=== PATIENT | female | born 1960 | race Caucasian/White ===

== ENCOUNTER 2017-08-19 11:11 | Inpatient (IN) | payer OTHER ==
[2017-08-19 12:26] VITALS: BMI 25.0
--- NOTE | 2017-08-19 14:50 | HP ---
<Tavares Sawyer - Last Filed: 08/20/17 06:57> Admission [facility] Allergies/Adverse Reactions: Allergies Allergy/AdvReac Type Severity Reaction Status Date / Time No Known Allergies Allergy Verified 08/19/17 12:54 Admission Physical Exam [facility] Vital Signs Vital Signs: Vital Signs - 24 hr 08/19/17 08/20/17 08/20/17 12:22 00:30 03:30 Temperature 96 F L Pulse Rate 82 Respiratory 16 18 18 Rate Blood Pressure 118/71 08/20/17 06:46 Temperature 98.3 F Pulse Rate 90 Respiratory 18 Rate Blood Pressure 107/70 - Diagnostic (1) Cocaine dependence Current Visit: Yes Status: Acute (2) Nicotine dependence Current Visit: Yes Status: Chronic Qualifiers: Nicotine product type: cigarettes Substance use status: uncomplicated Qualified Code(s): F17.210 - Nicotine dependence, cigarettes, uncomplicated <Jaime Corral - Last Filed: 08/20/17 12:09> Admission [facility] Chief Complaint: "I need help. Things have gotten out of control." Pt. is here for Rehab for Cocaine use. History of Present Illness: Pt. is a 56 YO female here for Rehab for Cocaine use. This is pt.'s first Rehab admission at [facility]. Pt. had 1 previous Detox admission at [facility] @ 2006. Longest period of non-drug use: 2012 -2016. Exam Limitations: No Limitations - Ebola screening Have you traveled outside of the country in the last 21 days: No Have you had contact with anyone from an Ebola affected area: No Have you been sick,other than usual withdrawal symptoms: No Do you have a fever: No - Review of Systems Constitutional: Chills, Diaphoresis, Fever, Malaise, Night Sweats, Changes in sleep, Unintentional Wgt. Loss (Lost Approx. 10 bs. over last 3 weeks.) EENT: reports: No Symptoms Reported Respiratory: reports: SOB with Exertion Cardiac: reports: No Symptoms Reported GI: reports: Diarrhea : reports: No Symptoms Reported Musculoskeletal: reports: No Symptoms Reported Integumentary: reports: No Symptoms Reported Neuro: reports: Numbness (Occasional in toes of bilateral feet.), Tingling ( Occasional in toes of bilateral feet.) Endocrine: reports: No Symptoms Reported Hematology: reports: No Symptoms Reported Psychiatric: reports: Judgement Intact, Mood/Affect Appropiate, Orientated x3, Anxious, Depressed (Meds.) Other Systems: Reviewed and Negative Patient History - Patient Medical History Hx Anemia: No Hx Asthma: No Hx Chronic Obstructive Pulmonary Disease (COPD): No Hx Cancer: Yes (Breast Ca. (Treated, In remission X 3 years).) Hx Cardiac Disorders: No Hx Congestive Heart Failure: No Hx Hypertension: No Hx Hypercholesterolemia: No Hx Pacemaker: No HX Cerebrovascular Accident: No Hx Seizures: No Hx Dementia: No Hx Diabetes: No Hx Gastrointestinal Disorders: No Hx Liver Disease: No Hx Genitourinary Disorders: No Hx Sexually Transmitted Disorders: No Hx Renal Disease (ESRD): No Hx Thyroid Disease: No Hx Human Immunodeficiency Virus (HIV): No (NEGATIVE HX; Last tested many years ago.) Hx Hepatitis C: No (NEGATIVE HX; Last tested many years ago.) Hx Depression: Yes (Meds.) Hx Suicide Attempt: Yes (cut right wrist with a switch box installer in 2005; PATIENT DENIES CURRENT SI / HI.) Hx Bipolar Disorder: Yes (Meds.) Hx Schizophrenia: No Other Medical History: DENIES. - Patient Surgical History Past Surgical History: Yes Hx Neurologic Surgery: No Hx Cataract Extraction: No Hx Cardiac Surgery: No Hx Lung Surgery: No Hx Breast Surgery: Yes (removal of cyst (malignant) in 2013) Hx Breast Biopsy: Yes (in 2013) Hx Abdominal Surgery: No Hx Appendectomy: No Hx Cholecystectomy: No Hx Genitourinary Surgery: No Hx Section: No Hx Orthopedic Surgery: No Hx Hysterectomy: No Anesthesia Reaction: No - PPD History Previous Implant?: Yes Documented Results: Negative w/o proof Implanted On Prior R Admission?: No PPD to be Administered?: Yes - Reproductive History Patient is a Female of Child Bearing Age (11 -55 yrs old): No LMP comment: LMP 16 Years Ago. Patient : No - Smoking Cessation Smoking history: Current every day smoker Have you smoked in the past 12 months: Yes Aproximately how many cigarettes per day: 6 Cigars Per Day: 0 Hx Chewing Tobacco Use: No Initiated information on smoking cessation: Yes 'Breaking Loose' booklet given: 08/19/17 (GIVEN ON UNIT.) - Substance & Tx. History Hx Alcohol Use: No Hx Substance Use: Yes Substance Use Type: Cocaine Hx Substance Use Treatment: Yes (1 Previous Detox admission at [facility] (@ 2005).) - Substances Abused Cocaine Route: Inhalation Frequency: Daily Amount used: $100 Age of first use: 21 Date of Last Use: 08/16/17 Family Disease History - Family Disease History Family Disease History: Respiratory: Mother (COPD, .), Other: Son ( , MVA.) Admission Physical Exam [facility] - Vital Signs Vital Signs: Vital Signs - 24 hr 08/19/17 12:22 Temperature 96 F L Pulse Rate 82 Respiratory 16 Rate Blood Pressure 118/71 - Physical General Appearance: Yes: No Apparent Distress, Nourished, Appropriately Dressed , Anxious HEENTM: Yes: Hearing grossly Normal, Normocephalic, Normal Voice, MYKEL, Pharynx Normal Respiratory: Yes: Chest Non-Tender, Lungs Clear, No Respiratory Distress, No Accessory Muscle Use Neck: Yes: No masses,lesions,Nodules, Supple, Trachea in good position Breast: Yes: Breast Exam Deferred Cardiology: Yes: Regular Rhythm, Regular Rate, S1, S2 Abdominal: Yes: Normal Bowel Sounds, Non Tender, Flat, Soft Genitourinary: Yes: Within Normal Limits Back: Yes: Normal Inspection Musculoskeletal: Yes: full range of Motion, Gait Steady Extremities: Yes: Normal Range of Motion, Non-Tender Neurological: Yes: Fully Oriented, Alert, Normal Mood/Affect, Normal Response Integumentary: Yes: Normal Color, Dry, Warm Lymphatic: Yes: Within Normal Limits - Diagnostic (1) Cocaine dependence, uncomplicated Current Visit: Yes Status: Chronic (2) Nicotine dependence Current Visit: Yes Status: Chronic Qualifiers: Nicotine product type: cigarettes Substance use status: uncomplicated Qualified Code(s): F17.210 - Nicotine dependence, cigarettes, uncomplicated (3) History of breast cancer Current Visit: Yes Status: Chronic (4) History of breast surgery Current Visit: Yes Status: Chronic (5) History of depression Current Visit: Yes Status: Chronic (6) History of bipolar disorder Current Visit: Yes Status: Chronic Cleared for Admission [facility] - Detox or Rehab Claeared for Rehab Admission: Yes [facility] Breath Alcohol Content Breath Alcohol Content: 0 Urine Pregancy Test - Result Urine Test Results: Negative- NO Line Present Urine Drug Screen - Results Drug Screen Negative: No Urine Drug Screen Results: NARDA-Cocaine Inpatient Rehab Admission - Initial Determination Are CD services needed?: Yes Free of communicable disease: Yes Not in need of hospitalization: Yes - Rehab Admission Criteria Comorbidities: Yes Patient is meeting Inpatient Rehab admission criteria:: Yes
[2017-08-19] MEDS ORDERED: guaiFENesin/D-METHORPHAN HB 10 ML UNIT-DOSE CUPS PO PRN (15:14)
[2017-08-19] MEDS ORDERED: IBUPROFEN 400 MG TABLET (FP) PO PRN (15:14)
[2017-08-19] MEDS ORDERED: P-EPHED 60MG/TRIPROLIDI 2.5MG TABLET PO PRN (15:14)
[2017-08-19] MEDS ORDERED: MAGNESIUM CITRATE 300 ML BOTTLE PO PRN (15:14)
[2017-08-19] MEDS ORDERED: NICOTINE POLACRILEX 2 MG GUM BUC PRN (15:14)
[2017-08-19] MEDS ORDERED: MAG HYDROX/AL HYDROX/SIMETH 30 ML UNIT-DOSE CUP PO PRN (15:14)
[2017-08-19] MEDS ORDERED: LOPERAMIDE HCL 2 MG CAPSULE PO PRN (15:14)
[2017-08-19 17:03] LABS: MCH 29.2 pg (25.7-33.7); MCHC 33.5 g/dl (32.0-36.0); MEAN CELL VOLUME 87.3 fl (80-96); PLATELET COUNT 255 K/MM3 (134-434); RDW 14.7 % (11.6-15.6); WHITE BLOOD COUNT 10.6 K/mm3 (4.0-10.0)
[2017-08-19 17:12] LABS: ALBUMIN 3.7 g/dl (3.4-5.0); ANION GAP 9 (8-16); CALCIUM 9.2 mg/dL (8.5-10.1); CO2 27 mmol/L (21-32); GLUCOSE,RANDOM 76 mg/dL (74-106); SGPT/ALT 14 U/L (12-78)
[2017-08-19 17:14] LABS: ALK PHOS 124 U/L (45-117); BILIRUBIN,TOTAL 0.4 mg/dL (0.2-1.0); CREATININE 0.8 mg/dL (0.55-1.02); SGOT/AST 6 U/L (15-37); TOT PROT 6.8 g/dl (6.4-8.2)
[2017-08-19] MEDS ORDERED: TUBERCULIN PPD 5 TU/0.1ML VIAL ID ONE (20:00)
[2017-08-19] MEDS: NICOTINE 14 MG/24 HOURS TOPICAL PATCH TD SCH (20:00)
[2017-08-19 21:22] LABS: URINE APPEARANCE SLCLOUDY; URINE BILIRUBIN NEGATIVE (NEGATIVE); URINE BLOOD 1+ (NEGATIVE); URINE COLOR YELLOW; URINE GLUCOSE (UA) NEGATIVE (NEGATIVE); URINE KETONE NEGATIVE (NEGATIVE); URINE LEUK ESTERASE NEGATIVE (NEGATIVE); URINE NITRITE NEGATIVE (NEGATIVE); URINE PROTEIN NEGATIVE (NEGATIVE); URINE UROBILINOGEN NEGATIVE mg/dL (0.2-1.0)
[2017-08-19 21:25] LABS: URINE MUCUS FEW; URINE RBC 2 /hpf (0-3); URINE WBC 1 /hpf (3-5)
[2017-08-19] MEDS: THIAMINE HCL 100 MG TABLET (FP) PO SCH (21:29)
[2017-08-19] MEDS: risperiDONE 1 MG TABLET (FP) PO SCH (21:30)
--- NOTE | 2017-08-20 06:53 | HP ---
Psychiatrist Admission - Data Date of interview: 08/20/17 Admission source: Self-referred Identifying data: This is the first [facility] admission for this 56 years old female, mother of 6 living children, unemployed on SSI, domiciled Medical History: Significant for history of surgery, chemo & rediation treatment for breast cancer in 2013. Smokes 6 cigarettes daily Psychiatric History: Reports being diagnosed with Bipolar Disorder more than 10 years ago and has had multiple psychiatric admissions since 2006 all to [facility] for depression & suicidal ideations. Reports receiving OPD care at [facility] and she is prescribed Risperdal 1 mg po BID and Klonopin 0.5 mg po BID. Reports history of suicidal attempts by overdose & cutting her wrist. At present, reports experiencing difficulty to sleep. Denies experiencing psychotic, manic or depressive symptoms as well as S/Hn ideations Physical/Sexual Abuse/Trauma History: Denies history of verbal, physical or sexual abuse as well as DV relationship Additional Comment: No criminal history Vital Signs: Vital Signs - 24 hr 08/19/17 08/20/17 08/20/17 12:22 00:30 03:30 Temperature 96 F L Pulse Rate 82 Respiratory 16 18 18 Rate Blood Pressure 118/71 08/20/17 06:46 Temperature 98.3 F Pulse Rate 90 Respiratory 18 Rate Blood Pressure 107/70 Allergies/Adverse Reactions: Allergies Allergy/AdvReac Type Severity Reaction Status Date / Time No Known Allergies Allergy Verified 08/19/17 12:54 Date of last physical exam: 08/19/17 Concur with the findings of this exam: Yes - Substance Abuse/Tx History Hx Alcohol Use: No Hx Substance Use: Yes Substance Use Type: Cocaine (Started using cocaine at age 21, consumes $100 worth daily. Last used on 08/16/17) Hx Substance Use Treatment: Yes (@ previous inpt detox #one inpt rehab @ [facility]) - Admission Criteria Previous failed treatment: No Poor recovery environment: Yes Comorbidities: Yes Lacks judgement: Yes Mental Status Exam - Mental Status Exam Alert and Oriented to: Time, Place, Person Cognitive Function: Fair Patient Appearance: Well Groomed Mood: Hopeful, Euthymic Patient Behavior: Cooperative Speech Pattern: Clear Voice Loudness: Normal Thought Process: Intact, Goal Oriented Hallucinations: Denies Suicidal Ideation: Denies Homicidal Ideation: Denies Insight/Judgement: Fair Sleep: Poorly Appetite: Good Muscle strength/Tone: Normal Gait/Station: Normal Psychiatric Findings - Problem List ([place] 1, 2,3) (1) Cocaine dependence Current Visit: Yes Status: Acute (2) Nicotine dependence Current Visit: Yes Status: Chronic Qualifiers: Nicotine product type: cigarettes Substance use status: uncomplicated Qualified Code(s): F17.210 - Nicotine dependence, cigarettes, uncomplicated (3) Bipolar II disorder Current Visit: Yes Status: Acute (4) History of breast cancer Current Visit: Yes Status: Chronic - Initial Treatment Plan Initial Treatment Plan: 1) Continue Risperdal 1 mg po BID. 2) Start Belsomra 10 mg po HS prn for insomnia. 3) Monitor progress
[2017-08-20 08:56] LABS: HIV 1 & 2 AB NEGATIVE; HIV 1 AGp24 NEGATIVE
[2017-08-20] MEDS: risperiDONE 1 MG TABLET (FP) PO SCH ×2 (09:59→21:21)
[2017-08-20] MEDS: PRENATAL VITAMINS W/ FOLIC ACID TABLET (FP) PO SCH (09:59)
[2017-08-20] MEDS: NICOTINE 14 MG/24 HOURS TOPICAL PATCH TD SCH (10:00)
[2017-08-20] MEDS: hydrOXYzine PAMOATE 50 MG CAPSULE (FP) PO PRN ×2 (11:41→18:18)
[2017-08-20] MEDS: MAGNESIUM HYDROX 2400MG/30ML ORAL SUSPENSION 30 ML CUP PO PRN (18:18)
[2017-08-20] MEDS: THIAMINE HCL 100 MG TABLET (FP) PO SCH (21:21)
[2017-08-20] MEDS ORDERED: SUVOREXANT 10 MG TABLET PO PRN (22:00)
--- NOTE | 2017-08-20 22:37 | EKG ---
Test Reason : Blood Pressure : / mmHG Vent. Rate : 076 BPM Atrial Rate : 076 BPM P-R Int : 146 ms QRS Dur : 088 ms QT Int : 398 ms P-R-T Axes : 041 036 042 degrees QTc Int : 447 ms NORMAL SINUS RHYTHM INCOMPLETE RBBB NO PREVIOUS ECGS AVAILABLE REPEAT EKG IF CLINICALLY INDICATED Confirmed by PEGGY PERALTA MD ([id number]) on 08/20/2017 10:37:27 PM Referred By: Confirmed By:PEGGY PERALTA MD
[2017-08-21] MEDS: risperiDONE 1 MG TABLET (FP) PO SCH ×2 (10:13→21:10)
[2017-08-21] MEDS: PRENATAL VITAMINS W/ FOLIC ACID TABLET (FP) PO SCH (10:13)
[2017-08-21] MEDS: NICOTINE 14 MG/24 HOURS TOPICAL PATCH TD SCH (10:13)
[2017-08-21] MEDS: MAGNESIUM HYDROX 2400MG/30ML ORAL SUSPENSION 30 ML CUP PO PRN (15:40)
[2017-08-21] MEDS: hydrOXYzine PAMOATE 50 MG CAPSULE (FP) PO PRN (21:09)
[2017-08-21] MEDS: THIAMINE HCL 100 MG TABLET (FP) PO SCH (21:10)
[2017-08-22] MEDS: risperiDONE 1 MG TABLET (FP) PO SCH ×2 (09:59→21:07)
[2017-08-22] MEDS: PRENATAL VITAMINS W/ FOLIC ACID TABLET (FP) PO SCH (09:59)
[2017-08-22] MEDS: NICOTINE 14 MG/24 HOURS TOPICAL PATCH TD SCH (10:00)
[2017-08-22] MEDS: GABAPENTIN 100 MG CAPSULE (FP) PO SCH ×2 (17:08→21:07)
[2017-08-22] MEDS: PANTOPRAZOLE 40 MG TABLET (FP) PO SCH (17:08)
[2017-08-22] MEDS: CYCLOBENZAPRINE HCL 5 MG TABLET PO SCH ×2 (17:08→21:08)
[2017-08-22] MEDS: NAPROXEN 500 MG TABLET (FP) PO SCH (21:07)
[2017-08-22] MEDS: THIAMINE HCL 100 MG TABLET (FP) PO SCH (21:07)
[2017-08-23] MEDS: CYCLOBENZAPRINE HCL 5 MG TABLET PO SCH ×3 (06:07→21:08)
[2017-08-23] MEDS: GABAPENTIN 100 MG CAPSULE (FP) PO SCH ×3 (06:07→21:08)
[2017-08-23] MEDS: PRENATAL VITAMINS W/ FOLIC ACID TABLET (FP) PO SCH (09:59)
[2017-08-23] MEDS: NAPROXEN 500 MG TABLET (FP) PO SCH ×2 (09:59→21:08)
[2017-08-23] MEDS: PANTOPRAZOLE 40 MG TABLET (FP) PO SCH (09:59)
[2017-08-23] MEDS: risperiDONE 1 MG TABLET (FP) PO SCH ×2 (09:59→21:09)
[2017-08-23] MEDS: NICOTINE 14 MG/24 HOURS TOPICAL PATCH TD SCH (10:00)
[2017-08-23] MEDS: THIAMINE HCL 100 MG TABLET (FP) PO SCH (21:07)
[2017-08-24] MEDS: CYCLOBENZAPRINE HCL 5 MG TABLET PO SCH ×3 (06:16→21:09)
[2017-08-24] MEDS: GABAPENTIN 100 MG CAPSULE (FP) PO SCH ×3 (06:16→21:09)
[2017-08-24] MEDS: PRENATAL VITAMINS W/ FOLIC ACID TABLET (FP) PO SCH (09:41)
[2017-08-24] MEDS: PANTOPRAZOLE 40 MG TABLET (FP) PO SCH (09:41)
[2017-08-24] MEDS: risperiDONE 1 MG TABLET (FP) PO SCH ×2 (09:41→21:09)
[2017-08-24] MEDS: NICOTINE 14 MG/24 HOURS TOPICAL PATCH TD SCH (09:41)
[2017-08-24] MEDS: NAPROXEN 500 MG TABLET (FP) PO SCH ×2 (09:41→21:09)
[2017-08-24] MEDS: MAGNESIUM HYDROX 2400MG/30ML ORAL SUSPENSION 30 ML CUP PO PRN (14:08)
[2017-08-24] MEDS: THIAMINE HCL 100 MG TABLET (FP) PO SCH (21:09)
[2017-08-24] MEDS: diphenhydrAMINE HCL 50 MG CAPSULE PO PRN (21:10)
[2017-08-25] MEDS: CYCLOBENZAPRINE HCL 5 MG TABLET PO SCH ×3 (06:30→21:31)
[2017-08-25] MEDS: GABAPENTIN 100 MG CAPSULE (FP) PO SCH ×3 (06:30→21:32)
[2017-08-25] MEDS: PANTOPRAZOLE 40 MG TABLET (FP) PO SCH (09:56)
[2017-08-25] MEDS: NICOTINE 14 MG/24 HOURS TOPICAL PATCH TD SCH (09:56)
[2017-08-25] MEDS: NAPROXEN 500 MG TABLET (FP) PO SCH ×2 (09:57→21:32)
[2017-08-25] MEDS: PRENATAL VITAMINS W/ FOLIC ACID TABLET (FP) PO SCH (09:57)
[2017-08-25] MEDS: risperiDONE 1 MG TABLET (FP) PO SCH ×2 (09:57→21:32)
[2017-08-25] MEDS: hydrOXYzine PAMOATE 50 MG CAPSULE (FP) PO PRN (13:18)
[2017-08-25] MEDS: THIAMINE HCL 100 MG TABLET (FP) PO SCH (21:32)
[2017-08-25] MEDS: SUVOREXANT 10 MG TABLET PO PRN (21:32)
[2017-08-26] MEDS: GABAPENTIN 100 MG CAPSULE (FP) PO SCH ×3 (06:21→21:39)
[2017-08-26] MEDS: CYCLOBENZAPRINE HCL 5 MG TABLET PO SCH ×3 (06:21→21:40)
[2017-08-26] MEDS: PRENATAL VITAMINS W/ FOLIC ACID TABLET (FP) PO SCH (09:56)
[2017-08-26] MEDS: PANTOPRAZOLE 40 MG TABLET (FP) PO SCH (09:56)
[2017-08-26] MEDS: NAPROXEN 500 MG TABLET (FP) PO SCH ×2 (09:56→21:40)
[2017-08-26] MEDS: risperiDONE 1 MG TABLET (FP) PO SCH ×2 (09:56→21:39)
[2017-08-26] MEDS: NICOTINE 14 MG/24 HOURS TOPICAL PATCH TD SCH (09:56)
[2017-08-26] MEDS: hydrOXYzine PAMOATE 50 MG CAPSULE (FP) PO PRN (21:39)
[2017-08-26] MEDS: SUVOREXANT 10 MG TABLET PO PRN (21:39)
[2017-08-26] MEDS: THIAMINE HCL 100 MG TABLET (FP) PO SCH (21:40)
[2017-08-27] MEDS: CYCLOBENZAPRINE HCL 5 MG TABLET PO SCH ×3 (06:09→21:01)
[2017-08-27] MEDS: GABAPENTIN 100 MG CAPSULE (FP) PO SCH ×3 (06:09→21:01)
[2017-08-27] MEDS: risperiDONE 1 MG TABLET (FP) PO SCH ×2 (09:55→21:02)
[2017-08-27] MEDS: PRENATAL VITAMINS W/ FOLIC ACID TABLET (FP) PO SCH (09:55)
[2017-08-27] MEDS: PANTOPRAZOLE 40 MG TABLET (FP) PO SCH (09:55)
[2017-08-27] MEDS: NAPROXEN 500 MG TABLET (FP) PO SCH ×2 (09:55→21:02)
[2017-08-27] MEDS: MAGNESIUM HYDROX 2400MG/30ML ORAL SUSPENSION 30 ML CUP PO PRN (09:56)
[2017-08-27] MEDS: NICOTINE 14 MG/24 HOURS TOPICAL PATCH TD SCH (09:56)
[2017-08-27] MEDS: THIAMINE HCL 100 MG TABLET (FP) PO SCH (21:01)
[2017-08-27] MEDS: SUVOREXANT 10 MG TABLET PO PRN (21:04)
[2017-08-28] MEDS: GABAPENTIN 100 MG CAPSULE (FP) PO SCH ×3 (06:32→21:25)
[2017-08-28] MEDS: CYCLOBENZAPRINE HCL 5 MG TABLET PO SCH ×3 (06:32→21:25)
[2017-08-28] MEDS: PANTOPRAZOLE 40 MG TABLET (FP) PO SCH (10:26)
[2017-08-28] MEDS: PRENATAL VITAMINS W/ FOLIC ACID TABLET (FP) PO SCH (10:26)
[2017-08-28] MEDS: risperiDONE 1 MG TABLET (FP) PO SCH ×2 (10:26→21:25)
[2017-08-28] MEDS: NICOTINE 14 MG/24 HOURS TOPICAL PATCH TD SCH (10:26)
[2017-08-28] MEDS: NAPROXEN 500 MG TABLET (FP) PO SCH ×2 (10:26→21:25)
[2017-08-28] MEDS: THIAMINE HCL 100 MG TABLET (FP) PO SCH (21:25)
[2017-08-28] MEDS: SUVOREXANT 10 MG TABLET PO PRN (21:25)
[2017-08-28] MEDS ORDERED: SUVOREXANT 10 MG TABLET PO PRN (22:00)
[2017-08-29] MEDS: GABAPENTIN 100 MG CAPSULE (FP) PO SCH ×3 (06:14→21:36)
[2017-08-29] MEDS: CYCLOBENZAPRINE HCL 5 MG TABLET PO SCH ×3 (06:14→21:37)
[2017-08-29] MEDS: NICOTINE 14 MG/24 HOURS TOPICAL PATCH TD SCH (10:08)
[2017-08-29] MEDS: PRENATAL VITAMINS W/ FOLIC ACID TABLET (FP) PO SCH (10:08)
[2017-08-29] MEDS: risperiDONE 1 MG TABLET (FP) PO SCH ×2 (10:08→21:36)
[2017-08-29] MEDS: NAPROXEN 500 MG TABLET (FP) PO SCH ×2 (10:08→21:36)
[2017-08-29] MEDS: PANTOPRAZOLE 40 MG TABLET (FP) PO SCH (10:08)
[2017-08-29] MEDS: THIAMINE HCL 100 MG TABLET (FP) PO SCH (21:36)
[2017-08-29] MEDS: SUVOREXANT 10 MG TABLET PO PRN (21:38)
[2017-08-30] MEDS: CYCLOBENZAPRINE HCL 5 MG TABLET PO SCH ×3 (06:20→21:20)
[2017-08-30] MEDS: GABAPENTIN 100 MG CAPSULE (FP) PO SCH ×3 (06:20→21:20)
[2017-08-30] MEDS ORDERED: SUVOREXANT 10 MG TABLET PO PRN (07:00)
[2017-08-30] MEDS: PRENATAL VITAMINS W/ FOLIC ACID TABLET (FP) PO SCH (09:52)
[2017-08-30] MEDS: risperiDONE 1 MG TABLET (FP) PO SCH ×2 (09:52→21:20)
[2017-08-30] MEDS: NAPROXEN 500 MG TABLET (FP) PO SCH ×2 (09:52→21:20)
[2017-08-30] MEDS: PANTOPRAZOLE 40 MG TABLET (FP) PO SCH (09:52)
[2017-08-30] MEDS: NICOTINE 14 MG/24 HOURS TOPICAL PATCH TD SCH (09:53)
[2017-08-30] MEDS: THIAMINE HCL 100 MG TABLET (FP) PO SCH (21:20)
[2017-08-30] MEDS: SUVOREXANT 10 MG TABLET PO PRN (21:22)
[2017-08-31] MEDS: GABAPENTIN 100 MG CAPSULE (FP) PO SCH ×3 (06:23→21:13)
[2017-08-31] MEDS: CYCLOBENZAPRINE HCL 5 MG TABLET PO SCH ×3 (06:23→21:13)
[2017-08-31] MEDS: NAPROXEN 500 MG TABLET (FP) PO SCH ×2 (10:02→21:13)
[2017-08-31] MEDS: risperiDONE 1 MG TABLET (FP) PO SCH ×2 (10:02→21:13)
[2017-08-31] MEDS: PANTOPRAZOLE 40 MG TABLET (FP) PO SCH (10:02)
[2017-08-31] MEDS: NICOTINE 14 MG/24 HOURS TOPICAL PATCH TD SCH (10:02)
[2017-08-31] MEDS: PRENATAL VITAMINS W/ FOLIC ACID TABLET (FP) PO SCH (10:02)
[2017-08-31] MEDS: MENTHOL/PHENOL 1 EACH UD MM PRN (17:51)
[2017-08-31] MEDS: THIAMINE HCL 100 MG TABLET (FP) PO SCH (21:13)
[2017-09-01] MEDS: CYCLOBENZAPRINE HCL 5 MG TABLET PO SCH ×3 (06:23→21:10)
[2017-09-01] MEDS: GABAPENTIN 100 MG CAPSULE (FP) PO SCH ×3 (06:23→21:10)
[2017-09-01] MEDS: ACETAMINOPHEN 325 MG TABLET (FP) PO PRN ×2 (06:25→12:40)
[2017-09-01] MEDS: MENTHOL/PHENOL 1 EACH UD MM PRN (06:26)
[2017-09-01] MEDS: NAPROXEN 500 MG TABLET (FP) PO SCH ×2 (10:04→21:10)
[2017-09-01] MEDS: PRENATAL VITAMINS W/ FOLIC ACID TABLET (FP) PO SCH (10:04)
[2017-09-01] MEDS: PANTOPRAZOLE 40 MG TABLET (FP) PO SCH (10:04)
[2017-09-01] MEDS: NICOTINE 14 MG/24 HOURS TOPICAL PATCH TD SCH (10:05)
[2017-09-01] MEDS: risperiDONE 1 MG TABLET (FP) PO SCH ×2 (10:06→21:10)
[2017-09-01] MEDS: hydrOXYzine PAMOATE 50 MG CAPSULE (FP) PO PRN (21:10)
[2017-09-01] MEDS: THIAMINE HCL 100 MG TABLET (FP) PO SCH (21:10)
[2017-09-01] MEDS: diphenhydrAMINE HCL 50 MG CAPSULE PO PRN (23:38)
[2017-09-02] MEDS: GABAPENTIN 100 MG CAPSULE (FP) PO SCH ×3 (06:26→21:13)
[2017-09-02] MEDS: CYCLOBENZAPRINE HCL 5 MG TABLET PO SCH ×3 (06:26→21:13)
[2017-09-02] MEDS ORDERED: SUVOREXANT 10 MG TABLET PO PRN (06:29)
--- NOTE | 2017-09-02 07:00 | PN ---
Psychiatric Progress Note Vital Signs: Vital Signs Period Temp Pulse Resp BP Sys/Pineda Pulse Ox Last 24 Hr 18 Date of Session: 09/02/17 Chief Complaint:: Discharge Note HPI: Patient addressing Cocaine Dependence comorbid with Nicotine Dependencev and Bipolar Disorder ROS: H/O breast cancer Current Medications: Active Medications Generic Name Dose Route Start Last Admin Trade Name Freq PRN Reason Stop Dose Admin Acetaminophen 650 mg 08/19/17 15:14 09/01/17 12:40 Tylenol - PO 650 mg Q4H PRN Administration PAIN Al Hydroxide/Mg Hydroxide 30 ml 08/19/17 15:14 08/31/17 10:02 Mylanta Oral Suspension - PO 30 ml Q6H PRN Administration DYSPEPSIA Cyclobenzaprine HCl 5 mg 08/22/17 16:45 09/02/17 06:26 Cyclobenzaprine Hcl PO 5 mg TID RAYMUNDO Administration Diphenhydramine HCl 50 mg 08/19/17 15:14 09/01/17 23:38 Benadryl - PO 50 mg HSMR1 PRN Administration INSOMNIA Eucalyptus/Menthol/Phenol/Sorbitol 1 each 08/19/17 15:14 09/01/17 06:26 Cepastat Lozenge - MM 1 each Q4H PRN Administration SORE THROAT Gabapentin 100 mg 08/22/17 16:45 09/02/17 06:26 Neurontin - PO 100 mg TID RAYMUNDO Administration Guaifenesin 10 ml 08/19/17 15:14 09/01/17 06:25 Robitussin Dm - PO 10 ml Q6H PRN Administration COUGH Hydroxyzine Pamoate 50 mg 08/19/17 15:14 09/01/17 21:10 Vistaril - PO 50 mg Q4H PRN Administration AGITATION Loperamide HCl 4 mg 08/19/17 15:14 Imodium - PO Q6H PRN DIARRHEA Magnesium Citrate 300 ml 08/19/17 15:14 08/29/17 10:10 Citroma - PO 300 ml Q48H PRN Administration CONSTIPATION Magnesium Hydroxide 30 ml 08/19/17 15:14 08/27/17 09:56 Milk Of Magnesia - PO 30 ml DAILY PRN Administration CONSTIPATION Naproxen 500 mg 08/22/17 22:00 09/01/17 21:10 Naprosyn - PO 500 mg BID RAYMUNDO Administration Nicotine 14 mg 08/19/17 15:15 09/01/17 10:05 Nicoderm Patch - TD 14 mg DAILY RAYMUNDO Administration Nicotine Polacrilex 2 mg 08/19/17 15:14 Nicorette Gum - BUC Q2H PRN NICOTINE REPLACEMENT RX Pantoprazole Sodium 40 mg 08/22/17 16:45 09/01/17 10:04 Protonix - PO 40 mg DAILY RAYMUNDO Administration Multivit/Folic Acid/Iron 1 tab 08/20/17 10:00 09/01/17 10:04 Vitamins (Sjr) - PO 1 tab DAILY RAYMUNDO Administration Pseudoephedrine/Triprolidine 1 combo 08/19/17 15:14 Actifed - PO TID PRN NASAL CONGESTION Risperidone 1 mg 08/19/17 22:00 09/01/17 21:10 Risperdal - PO 1 mg BID RAYMUNDO Administration Thiamine HCl 100 mg 08/19/17 22:00 09/01/17 21:10 Vitamin B1 - PO 100 mg HS RAYMUNDO Administration Current Side Effect: No Lab tests ordered: Yes Lab tests reviewed: Yes Provider note:: Patient will complete thid program on 09/03/17. She has met her treatment goals and will continue to address her issues in outpatient treatment at [facility] at [address], [place] [address]. Told insurance underwriter that from her participation in this program, she has learned that she can stay away from drug, not from the drug dealers. She responded wel to Risperdal 1 mg po BID. Script for 30 days supply of that medication will be electronically transmitted to [facility] at [address] [place] [address]. She is stable for discharge on 09/03/17 Total face to face time:: 35 Mental Status Exam - Mental Status Exam Alert and Oriented to: Time, Place, Person Cognitive Function: Fair Patient Appearance: Well Groomed Mood: Hopeful, Euthymic Affect: Appropriate Patient Behavior: Cooperative Speech Pattern: Clear Voice Loudness: Normal Thought Process: Intact, Goal Oriented Thought Disorder: Not Present Hallucinations: Denies Suicidal Ideation: Denies Homicidal Ideation: Denies Insight/Judgement: Fair Sleep: Fair Appetite: Good Muscle strength/Tone: Normal Gait/Station: Normal Psychiatric Treatment Plan - Problem List (1) Cocaine dependence Current Visit: Yes (2) Nicotine dependence Current Visit: Yes Qualifiers: Nicotine product type: cigarettes Substance use status: uncomplicated Qualified Code(s): F17.210 - Nicotine dependence, cigarettes, uncomplicated; F17.210 - Nicotine dependence, cigarettes, uncomplicated (3) Bipolar II disorder Current Visit: Yes (4) History of breast cancer Current Visit: Yes Initial treatment plan: Patient is discharged tomorrow and referred to [facility] for outpatient treatment
[2017-09-02] MEDS: NICOTINE 14 MG/24 HOURS TOPICAL PATCH TD SCH (09:58)
[2017-09-02] MEDS: PRENATAL VITAMINS W/ FOLIC ACID TABLET (FP) PO SCH (09:59)
[2017-09-02] MEDS: PANTOPRAZOLE 40 MG TABLET (FP) PO SCH (09:59)
[2017-09-02] MEDS: NAPROXEN 500 MG TABLET (FP) PO SCH ×2 (09:59→21:15)
[2017-09-02] MEDS: risperiDONE 1 MG TABLET (FP) PO SCH ×2 (09:59→21:13)
[2017-09-02] MEDS: MAGNESIUM HYDROX 2400MG/30ML ORAL SUSPENSION 30 ML CUP PO PRN (13:26)
[2017-09-02] MEDS: hydrOXYzine PAMOATE 50 MG CAPSULE (FP) PO PRN (21:13)
[2017-09-02] MEDS: THIAMINE HCL 100 MG TABLET (FP) PO SCH (21:13)
[2017-09-03] MEDS: CYCLOBENZAPRINE HCL 5 MG TABLET PO SCH (06:20)
[2017-09-03] MEDS: GABAPENTIN 100 MG CAPSULE (FP) PO SCH (06:20)
[2017-09-03 07:10] VITALS: BP 99/67; PULSE 95; TEMP 98.2
[2017-09-03] MEDS: risperiDONE 1 MG TABLET (FP) PO SCH (09:38)
[2017-09-03] MEDS: PRENATAL VITAMINS W/ FOLIC ACID TABLET (FP) PO SCH (09:38)
[2017-09-03] MEDS: NAPROXEN 500 MG TABLET (FP) PO SCH (09:38)
[2017-09-03] MEDS: PANTOPRAZOLE 40 MG TABLET (FP) PO SCH (09:38)
[2017-09-03] MEDS: NICOTINE 14 MG/24 HOURS TOPICAL PATCH TD SCH (09:39)
[2017-09-03] MEDS ORDERED: PT OWN MED DRAWER 7, Y5N ONE (09:45)
[2017-09-05] MEDS ORDERED: FLU VACCINE QUAD 60 MCG/0.5 ML (MDV 17-18) IM ONE (12:00)
== END 2017-09-03 09:50 | disposition home or self-care (01) | DRG 772 ==
LOC: YASAS 11:11 → Y3W 14:16
PROVIDERS: ADMIT Psychiatry & Neurology Psychiatry; ATTEND Psychiatry & Neurology Psychiatry
PROC: HZ42ZZZ Group Counseling for Substance Abuse Treatment, Cognitive-Behavioral (ICD-10-PCS; principal; 2017-08-19)
DX: F14.20 Cocaine dependence, uncomplicated (principal); F17.210 Nicotine dependence, cigarettes, uncomplicated; F31.81 Bipolar II disorder; Z85.3 Personal history of malignant neoplasm of breast
CPT/HCPCS: 36415; 80053; 81003; 81015; 85027; 86593; 86803; 87389; 93005; 93010; J2794